=== PATIENT | female | born 1955 ===

== ENCOUNTER 2022-07-17 11:58 | Outpatient (CLI) | payer BC | END 2022-07-17 12:07 | disposition home or self-care (01) | LOC: MAMO-SONO 11:58 | PROVIDERS: ATTEND Specialist | DX: N60.11 Diffuse cystic mastopathy of right breast (principal); N60.12 Diffuse cystic mastopathy of left breast ==

== ENCOUNTER 2023-01-22 11:47 | Outpatient (CLI) | payer OTHER, BC | END 2023-01-22 11:51 | disposition home or self-care (01) | LOC: RAD 11:47 | PROVIDERS: ATTEND Chiropractor | DX: M25.561 Pain in right knee (principal) ==

== ENCOUNTER 2023-07-29 13:05 | Outpatient (CLI) | payer OTHER, BC | END 2023-07-29 13:16 | disposition home or self-care (01) | LOC: MAMO-SONO 13:05 | PROVIDERS: ATTEND Specialist | DX: N60.11 Diffuse cystic mastopathy of right breast (principal); N60.12 Diffuse cystic mastopathy of left breast ==

== ENCOUNTER 2024-02-05 09:58 | Outpatient (CLI) | payer OTHER, BC | END 2024-02-05 10:04 | disposition home or self-care (01) | LOC: SONOGRAMA 09:58 | PROVIDERS: ATTEND Specialist | DX: M19.142 Post-traumatic osteoarthritis, left hand (principal); M65.842 Other synovitis and tenosynovitis, left hand; M65.4 Radial styloid tenosynovitis [de Quervain] ==

== ENCOUNTER 2024-05-07 12:59 | Outpatient (CLI) | payer OTHER, BC | END 2024-05-07 13:10 | disposition home or self-care (01) | LOC: RAD 12:59 | PROVIDERS: ATTEND Chiropractor | DX: M25.552 Pain in left hip (principal) | CPT/HCPCS: 73721 ==

== ENCOUNTER 2024-06-02 09:07 | Outpatient (CLI) | payer OTHER, BC | END 2024-06-02 09:13 | disposition home or self-care (01) | LOC: SONOGRAMA 09:07 | PROVIDERS: ATTEND Internal Medicine Hepatology | DX: R10.11 Right upper quadrant pain (principal) ==

== ENCOUNTER 2024-07-30 10:40 | Outpatient (CLI) | payer OTHER, BC | END 2024-07-30 10:56 | disposition home or self-care (01) | LOC: MAMO-SONO 10:40 | PROVIDERS: ATTEND Specialist | DX: N60.11 Diffuse cystic mastopathy of right breast (principal); N60.12 Diffuse cystic mastopathy of left breast; Z12.31 Encounter for screening mammogram for malignant neoplasm of breast ==

== ENCOUNTER 2024-07-31 12:09 | Outpatient (CLI) | payer OTHER, BC | END 2024-07-31 12:18 | disposition home or self-care (01) | LOC: MRI 12:09 | PROVIDERS: ATTEND Specialist | DX: M51.26 Other intervertebral disc displacement, lumbar region (principal); M51.17 Intervertebral disc disorders with radiculopathy, lumbosacral region | CPT/HCPCS: 72148 ==

== ENCOUNTER 2024-10-01 15:28 | Outpatient (CLI) | payer OTHER, BC | END 2024-10-01 15:31 | disposition home or self-care (01) | LOC: RAD 15:28 | PROVIDERS: ATTEND Pulmonary Function Technologist | DX: J45.909 Unspecified asthma, uncomplicated (principal); J45.901 Unspecified asthma with (acute) exacerbation; J32.9 Chronic sinusitis, unspecified ==